=== PATIENT | female | born 1985 | race Caucasian/White ===

== ENCOUNTER 2016-09-02 16:01 | Emergency (ER) | payer MEDICAID, OTHER ==
[~2016-09-02] VITALS: Wt 75.0 kg
[~2016-09-02 16:01] MED LIST: DENIES
[2016-09-02 17:28] LABS: ADD SCAN DIFF NO
[2016-09-02 17:36] LABS: BASOPHILS % 0.6 % (0.0-2.0); EOSINOPHILS % 0.6 % (0.0-7.0); HEMATOCRIT 39.3 % (37.0-47.0); HEMOGLOBIN 13.6 g/dl (12.0-16.0); LYMPHOCYTES # 2.2 10^3/ul (0.8-2.9); LYMPHOCYTES % 33.3 % (15.0-51.0); MEAN CORPUSCULAR HEMOGLOBIN 29.2 pg (29.0-33.0); MEAN CORPUSCULAR HGB CONC 34.6 g/dl (32.0-37.0); MEAN CORPUSCULAR VOLUME 84.3 fl (82.0-101.0); MEAN PLATELET VOLUME 9.7 fl (7.4-10.4); MONOCYTE # 0.4 10^3/ul (0.3-0.9); MONOCYTES % 6.8 % (0.0-11.0); NEUTROPHIL # 3.8 10^3/ul (1.6-7.5); NEUTROPHILS % 58.4 % (39.0-77.0); PLATELET COUNT 214 10^3/UL (140-415); RED BLOOD COUNT 4.66 10^6/ul (4.20-5.40); WHITE BLOOD COUNT 6.5 10^3/ul (4.8-10.8)
[2016-09-02 17:54] LABS: ADD UMIC YES; URINE BILIRUBIN (Dip) NEGATIVE (NEGATIVE); URINE BLOOD (Dip) 2+ (NEGATIVE); URINE COLOR LT. YELLOW (YELLOW); URINE GLUCOSE (Dip) NEGATIVE (NEGATIVE); URINE KETONES (Dip) NEGATIVE (NEGATIVE); URINE LEUKOCYTE ESTERASE (Dip) 2+ (NEGATIVE); URINE NITRITE (Dip) NEGATIVE (NEGATIVE); URINE TOTAL PROTEIN (Dip) NEGATIVE (NEGATIVE); URINE UROBILINOGEN (Dip) 0.2 E.U./dL (0.1-1.0)
[2016-09-02 19:12] LABS: BACTERIA,URINE MODERATE; SQUAMOUS EPITHELIAL CELL,UR MANY
--- NOTE | 2016-09-02 19:38 | RADRPT ---
AMENDMENT: 09/02/2016 7:42:14 PM Malcolm Angel M.D Recommend follow up imaging to confirm that the lesion seen in the right adnexal area is result of a corpus luteal cyst. PROCEDURE: US OB. CLINICAL INDICATION: 23-year-old female with vaginal bleeding. TECHNIQUE: Transabdominal and transvaginal views of the pelvis are available for review. COMPARISON: Pelvic sonogram 12/11/2008. FINDINGS: The uterus measured 10.1 cm sagittal by 5.1 cm AP by 7.1 cm transverse. Years contains a gestationa l sac measuring 1.2 x 0.6 x 0.9 cm. Main sac diameter is 0.92 cm which calculates out to 5 weeks 3 days. A yolk sac is identified. [place]-rump length:No pole is identified. heart rate:No cardiac activity is noted. There is normal blood flow to the right ovary. There is a corpus luteal cyst in the right ovary tyrel suring 2.6 x 1.6 by 2.2 cm. There is a tubular shaped fluid collection in the right adnexal area of the may be the result of a hydrosalpinx. The left ovary measures 2.7 by 1.9 x 3.7 cm. There is normal blood flow to both ovaries. A trace of fluid is noted in the cul-de-sac. IMPRESSION: 1. A gestational sac is identified. AUA calculates out to 5 weeks 3 days. 2. 2.6 x 1.6 x 2.2 cm right corpus luteal cyst of . 3. Right hydrosalpinx. 4. Trace fluid in the cul-de-sac. RPTAT:AAJJ Physician Aimee Date Time Electronically viewed and signed by Corey Angel Physician on 09/02/2016 19:42 RAULITO/
[2016-09-02] MEDS ORDERED: ACETAMINOPHEN 500 MG TAB PO STA (19:41)
[2016-09-02] MEDS ORDERED: TYL500 PO (19:43)
[2016-09-02] MEDS ORDERED: CEPH250S33 PO (19:43)
--- NOTE | 2016-09-02 19:47 | ERD ---
ER Documentation Chief Complaint Date/Time DATE: 09/02/16 TIME: 19:44 Chief Complaint VAG BLEED 8 WEEKS PREG HPI This 31-year-old female presents with some vaginal bleeding starting today. She is approximately 8 weeks by dates. She did see her OB today and noticed some blood when she got home. She is some mild lower suprapubic cramping as well. She denies any fevers or vomiting or urinary complaints. She is a G4 para 3. ROS All systems reviewed and are negative except as per history of present illness. Medications Home Meds Active Scripts Acetaminophen* (Tylenol*) 500 Mg Tab, 500 MG PO Q4H Y for MILD PAIN LEVEL 1-3, # 15 TAB Prov:GENE CAMARGO MD 09/02/16 Cephalexin* (Cephalexin* Susp) 250 Mg/5 Ml Susp.recon, 500 MG PO Q6 for 5 Days, #1 BOTTLE Prov:GENE CAMARGO MD 09/02/16 Reported Medications [Denies] No Conflict Check 08/03/10 Allergies Allergies: Coded Allergies: No Known Allergy (Verified , 10/21/11) PMhx/Soc History of Surgery: Yes () Anesthesia Reaction: No Hx Neurological Disorder: No Hx Respiratory Disorders: No Hx Cardiac Disorders: No Hx Psychiatric Problems: No Hx Miscellaneous Medical Probl: No Hx Alcohol Use: No Hx Substance Use: No Hx Tobacco Use: No Smoking Status: Never smoker Physical Exam Vitals Vital Signs Date Time Temp Pulse Resp B/P Pulse Ox O2 Delivery O2 Flow Rate FiO2 09/02/16 16:03 98.7 87 18 118/75 99 Physical Exam Const: [] Alert, [id number] per Head: Atraumatic Eyes: Normal Conjunctiva ENT: Normal External Ears, Nose and Mouth. Neck: Full range of motion..~ No meningismus. Resp: Clear to auscultation bilaterally Cardio: Regular rate and rhythm, no murmurs Abd: Soft, minimal suprapubic tenderness., non distended. Normal bowel sounds Skin: No petechiae or rashes Back: No midline or flank tenderness Ext: No cyanosis, or edema Neur: Awake and alert Psych: Normal Mood and Affect Result Diagram: 09/02/16 1720 Results 24 hrs Laboratory Tests Test 09/02/16 17:20 Basophils # 0.010^3/ul Basophils % 0.6% Beta HCG, Quantitative 29154.0mIU/ml Eosinophils # 0.010^3/ul Eosinophils % 0.6% Hematocrit 39.3% Hemoglobin 13.6g/dl Lymphocytes # 2.210^3/ul Lymphocytes % 33.3% Mean Corpuscular Hemoglobin 29.2pg Mean Corpuscular Hemoglobin Concent 34.6g/dl Mean Corpuscular Volume 84.3fl Mean Platelet Volume 9.7fl Monocytes # 0.410^3/ul Monocytes % 6.8% Neutrophils # 3.810^3/ul Neutrophils % 58.4% Nucleated Red Blood Cells # 0.010^3/ul Nucleated Red Blood Cells % 0.0/100WBC Platelet Count 75723^3/UL Red Blood Count 4.6610^6/ul Red Cell Distribution Width 13.0% Urine Bacteria MODERATE Urine Bilirubin NEGATIVE Urine Clarity SLIGHTLY CLOUDY Urine Color LT. YELLOW Urine Glucose NEGATIVE% Urine Hemoglobin 2+ Urine Ketones NEGATIVE Urine Leukocyte Esterase 2+ Urine Microscopic RBC 5-10/HPF Urine Microscopic WBC 25-50/HPF Urine Nitrite NEGATIVE Urine Specific [place] 1.015 Urine Squamous Epithelial Cells MANY Urine Total Protein NEGATIVE Urine Urobilinogen 0.2 E.U./dL Urine pH 6.0 White Blood Count 6.510^3/ul Current Medications Medications (Trade) Dose Ordered Sig/Roberta Route PRN Reason Start Time Stop Time Status Last Admin Dose Admin Acetaminophen (Tylenol Tab) 500 mg ONCE STAT PO 09/02/16 19:41 09/02/16 19:42 UNV Cephalexin (Keflex) 500 mg ONCE ONCE PO 09/02/16 20:00 09/02/16 20:01 UNV Procedures/MDM Urine shows leukocytes and hemoglobin with moderate bacteria. CBC shows no acute abnormalities. Patient is Rh+. Quantitative hCG is 11,600. Pelvic ultrasound shows a 6 week gestational sac without pole, yolk sac or heart tones. There is a right-sided hydrosalpinx. There is no appreciation of ectopic . There is a corpus luteal cyst. Patient presents with vaginal bleeding 1 days duration. She did have some clots but no visible tissue. She may have incomplete or early normal or possible ectopic . Patient is in no distress. I am recommending a 2 day recheck for hormone level and ultrasound. Signs or symptoms not consistent with appendicitis, acute abdomen. She does have signs of urinary tract infection will be treated for this. Departure Diagnosis: Primary Impression: Vaginal bleeding in patient at less than 20 weeks ges... Condition: Stable Patient Instructions: Bleeding During Early Additional Instructions: Ultrasound shows a small sac. Symptoms may may be early normal , early miscarriage or possible tubal . Recommend repeat hormone levels and ultrasound in 48 hours. Recheck sooner for fevers, vomiting, new or worsening symptoms or worsening pain. Urine shows infection will be treated for this but not likely related. GENE CAMARGO MD Sep 02, 2016 19:47
--- NOTE | 2016-09-02 19:52 | ERD ---
ER Documentation Chief Complaint Date/Time DATE: 09/02/16 TIME: 19:41 Chief Complaint VAG BLEED 8 WEEKS PREG ROS All systems reviewed and are negative except as per history of present illness. Medications Home Meds Reported Medications [Denies] No Conflict Check 08/03/10 Allergies Allergies: Coded Allergies: No Known Allergy (Verified , 10/21/11) PMhx/Soc History of Surgery: Yes () Anesthesia Reaction: No Hx Neurological Disorder: No Hx Respiratory Disorders: No Hx Cardiac Disorders: No Hx Psychiatric Problems: No Hx Miscellaneous Medical Probl: No Hx Alcohol Use: No Hx Substance Use: No Hx Tobacco Use: No Smoking Status: Never smoker Physical Exam Vitals Vital Signs Date Time Temp Pulse Resp B/P Pulse Ox O2 Delivery O2 Flow Rate FiO2 09/02/16 16:03 98.7 87 18 118/75 99 Physical Exam Const: [] Head: Atraumatic Eyes: Normal Conjunctiva ENT: Normal External Ears, Nose and Mouth. Neck: Full range of motion..~ No meningismus. Resp: Clear to auscultation bilaterally Cardio: Regular rate and rhythm, no murmurs Abd: Soft, non tender, non distended. Normal bowel sounds Skin: No petechiae or rashes Back: No midline or flank tenderness Ext: No cyanosis, or edema Neur: Awake and alert Psych: Normal Mood and Affect Result Diagram: 09/02/16 1720 Results 24 hrs Laboratory Tests Test 09/02/16 17:20 Basophils # 0.010^3/ul Basophils % 0.6% Beta HCG, Quantitative 31780.0mIU/ml Eosinophils # 0.010^3/ul Eosinophils % 0.6% Hematocrit 39.3% Hemoglobin 13.6g/dl Lymphocytes # 2.210^3/ul Lymphocytes % 33.3% Mean Corpuscular Hemoglobin 29.2pg Mean Corpuscular Hemoglobin Concent 34.6g/dl Mean Corpuscular Volume 84.3fl Mean Platelet Volume 9.7fl Monocytes # 0.410^3/ul Monocytes % 6.8% Neutrophils # 3.810^3/ul Neutrophils % 58.4% Nucleated Red Blood Cells # 0.010^3/ul Nucleated Red Blood Cells % 0.0/100WBC Platelet Count 80269^3/UL Red Blood Count 4.6610^6/ul Red Cell Distribution Width 13.0% Urine Bacteria MODERATE Urine Bilirubin NEGATIVE Urine Clarity SLIGHTLY CLOUDY Urine Color LT. YELLOW Urine Glucose NEGATIVE% Urine Hemoglobin 2+ Urine Ketones NEGATIVE Urine Leukocyte Esterase 2+ Urine Microscopic RBC 5-10/HPF Urine Microscopic WBC 25-50/HPF Urine Nitrite NEGATIVE Urine Specific [place] 1.015 Urine Squamous Epithelial Cells MANY Urine Total Protein NEGATIVE Urine Urobilinogen 0.2 E.U./dL Urine pH 6.0 White Blood Count 6.510^3/ul Departure Diagnosis: Primary Impression: Vaginal bleeding in patient at less than 20 weeks ges... Condition: Stable Patient Instructions: Bleeding During Early Additional Instructions: Ultrasound shows a small sac. Symptoms may may be early normal , early miscarriage or possible tubal . Recommend repeat hormone levels and ultrasound in 48 hours. Recheck sooner for fevers, vomiting, new or worsening symptoms or worsening pain. GENE CAMARGO MD Sep 02, 2016 19:51
[2016-09-02] MEDS ORDERED: CEPHALEXIN 500 MG CAP PO ONE (20:00)
[2016-09-02 20:31] VITALS: BP 115/73; PULSE 68; RESP 18; TEMP 98.7
== END 2016-09-02 20:32 | disposition home or self-care (01) ==
LOC: FTE 16:01
DX: O20.9 Hemorrhage in early pregnancy, unspecified (principal); Z3A.01 Less than 8 weeks gestation of pregnancy
CPT/HCPCS: 76801; 76817; 81001; 81003; 84702; 85025; 86900; 86901; Z7610

== ENCOUNTER 2016-09-04 13:03 | Emergency (ER) | payer MEDICAID ==
[~2016-09-04] VITALS: Ht 162.6 cm; Wt 75.0 kg
[~2016-09-04 13:03] MED LIST changes: +CEPH250S33 PO; +TYL500 PO
[2016-09-04 13:08] VITALS: Ht 162.6 cm; Wt 75.0 kg
[2016-09-04] MEDS ORDERED: METOCLOPRAMIDE 10 MG TAB PO ONE (14:00)
[2016-09-04 14:32] LABS: BASOPHILS % 0.6 % (0.0-2.0); EOSINOPHILS # 0.1 10^3/ul (0.0-0.5); EOSINOPHILS % 0.9 % (0.0-7.0); HEMATOCRIT 41.9 % (37.0-47.0); HEMOGLOBIN 14.4 g/dl (12.0-16.0); LYMPHOCYTES # 1.9 10^3/ul (0.8-2.9); LYMPHOCYTES % 30.8 % (15.0-51.0); MEAN CORPUSCULAR HEMOGLOBIN 29.3 pg (29.0-33.0); MEAN CORPUSCULAR HGB CONC 34.4 g/dl (32.0-37.0); MEAN PLATELET VOLUME 7.9 fl (7.4-10.4); MONOCYTE # 0.5 10^3/ul (0.3-0.9); MONOCYTES % 7.7 % (0.0-11.0); NEUTROPHIL # 3.8 10^3/ul (1.6-7.5); PLATELET COUNT 219 10^3/UL (140-440); RED BLOOD COUNT 4.93 10^6/ul (4.20-5.40); RED CELL DISTRIBUTION WIDTH 13.6 % (11.5-14.5); UNCORRECTED WBC 6.3 10^3/ul (4.8-10.8); WHITE BLOOD COUNT 6.3 10^3/ul (4.8-10.8)
[2016-09-04 14:38] LABS: CONDITION 1
[2016-09-04 14:43] LABS: ADD UMIC YES; URINE BILIRUBIN (Dip) NEGATIVE (NEGATIVE); URINE BLOOD (Dip) NEGATIVE (NEGATIVE); URINE COLOR LT. YELLOW (YELLOW); URINE GLUCOSE (Dip) NEGATIVE (NEGATIVE); URINE KETONES (Dip) NEGATIVE (NEGATIVE); URINE LEUKOCYTE ESTERASE (Dip) 2+ (NEGATIVE); URINE NITRITE (Dip) NEGATIVE (NEGATIVE); URINE TOTAL PROTEIN (Dip) NEGATIVE (NEGATIVE); URINE UROBILINOGEN (Dip) 0.2 E.U./dL (0.1-1.0)
[2016-09-04 14:59] LABS: BACTERIA,URINE RARE; SQUAMOUS EPITHELIAL CELL,UR FEW; URINE RBCS 0-2 /HPF (0)
--- NOTE | 2016-09-04 15:23 | RADRPT ---
PROCEDURE: US OB. CLINICAL INDICATION: Vaginal bleeding TECHNIQUE: Transabdominal and transvaginal views of the pelvis are available for review. COMPARISON: 09/02/2016 FINDINGS: There is a single intrauterine gestation with the crown-rump length measuring 0.4 cm, corresponding to a gestational age of 6 weeks and 0 days. The heart rate is noted at 114 bpm. Normal Doppler flow is identified in both ovaries. The right ovary measures 3.0 x 2.0 x 2.8 cm. There is a tubular structure in the right adnexa, suspi cious for hydrosalpinx. There is a corpus luteum cyst in the right ovary. The left ovary measures 2.9 x 1.4 x 1.9 cm. There is a small amount of free fluid in the cul-de-sac. RPTAT: AA IMPRESSION: Single live intrauterine with an estimated gestational age of 6 weeks and 0 days, based on ultrasound measurements. bradycardia may be due to the early gestation. Close follow-up is needed. MIRA based on ultrasound measurements is 04/30/17. Right hydrosalpinx. Right ovarian corpus luteum cyst. .Devonte Mayfield MD, MD Date Time Electronically viewed and signed by .Devonte Mayfield MD, on 09/04/2016 15:23 .S/
--- NOTE | 2016-09-04 15:53 | ERD ---
ER Documentation Chief Complaint Date/Time DATE: 09/04/16 TIME: 15:44 Chief Complaint SEEN LAST MONDAY FOR VB 8 WKS PREG. INSTRUCTED TO RETURN TODAY. HPI Patient is a 31-year-old female, presents to the emergency department for repeat ultrasound hCG levels. Patient was seen here on 09/02/16, and at that time ultrasound showed "6 week gestational sac without pole, yolk sac or heart tones. There is a right-sided hydrosalpinx. No appreciation of ectopic . There is a corpus luteal cyst." Patient states that her vaginal bleeding has resolved. Patient does report some bilateral pelvic cramping. She states that the pain is more in the right side. Patient also reports intermittent nausea and vomiting the mornings. Patient denies any fever , chills, shortness of breath, chest pain, loss consciousness. She was also diagnosed with a UTI at previous visit. Patient states that she has not picked up her prescription for Keflex yet. ROS All systems reviewed and are negative except as per history of present illness. Medications Home Meds Active Scripts Acetaminophen* (Tylenol*) 500 Mg Tab, 500 MG PO Q4H Y for MILD PAIN LEVEL 1-3, # 15 TAB Prov:GENE CAMARGO MD 09/02/16 Cephalexin* (Cephalexin* Susp) 250 Mg/5 Ml Susp.recon, 500 MG PO Q6 for 5 Days, #1 BOTTLE Prov:GENE CAMARGO MD 09/02/16 Reported Medications [Denies] No Conflict Check 08/03/10 Allergies Allergies: Coded Allergies: No Known Allergy (Verified , 10/21/11) PMhx/Soc Medical and Surgical Hx: pt denies Medical Hx History of Surgery: Yes () Anesthesia Reaction: No Hx Neurological Disorder: No Hx Respiratory Disorders: No Hx Cardiac Disorders: No Hx Psychiatric Problems: No Hx Miscellaneous Medical Probl: No Hx Alcohol Use: No Hx Substance Use: No Hx Tobacco Use: No Smoking Status: Never smoker FmHx Family History: No diabetes Physical Exam Vitals Vital Signs Date Time Temp Pulse Resp B/P Pulse Ox O2 Delivery O2 Flow Rate FiO2 09/04/16 13:08 97.2 88 19 119/74 99 Physical Exam GENERAL: Well-developed, well-nourished female. Appears in no acute distress. HEAD: Normocephalic, atraumatic. EYES: Pupils are equally reactive bilaterally. EOMs grossly intact. No conjunctival erythema. ENT: Moist mucous membranes. No uvula deviation. No kissing tonsils. NECK: Supple. No lymphadenopathy or thyromegaly. No meningismus. LUNG: Clear to auscultation bilaterally. No rhonchi, wheezing, rales or coarse breath sounds. HEART: Regular rate and rhythm. No murmurs, rubs or gallops. ABDOMEN: No scars, ecchymosis or rashes noted. Soft and nondistended. Tender to palpation in the suprapubic region and right pelvic region. Positive bowel sounds in all four quadrants. No rebound tenderness, no guarding. (-) McBurneys point tenderness. No CVA tenderness. BACK: No midline tenderness. EXTREMITIES: Equal pulses bilaterally. No peripheral clubbing, cyanosis or edema. No unilateral leg swelling. NEUROLOGIC: Alert and oriented. Moving all four extremities without any difficulty. Normal speech. Steady gait. SKIN: Normal color. Warm and dry. No rashes or lesions. Result Diagram: 09/04/16 1420 Results 24 hrs Laboratory Tests Test 09/04/16 14:17 09/04/16 14:20 Urine Bacteria RARE Urine Bilirubin NEGATIVE Urine Clarity CLEAR Urine Color LT. YELLOW Urine Glucose NEGATIVE% Urine Hemoglobin NEGATIVE Urine Ketones NEGATIVE Urine Leukocyte Esterase 2+ Urine Microscopic RBC 0-2/HPF Urine Microscopic WBC 5-10/HPF Urine Nitrite NEGATIVE Urine Specific [place] 1.010 Urine Squamous Epithelial Cells FEW Urine Total Protein NEGATIVE Urine Urobilinogen 0.2 E.U./dL Urine pH 5.0 Basophils # 0.010^3/ul Basophils % 0.6% Beta HCG, Quantitative 56246.0mIU/ml Eosinophils # 0.110^3/ul Eosinophils % 0.9% Hematocrit 41.9% Hemoglobin 14.4g/dl Lymphocytes # 1.910^3/ul Lymphocytes % 30.8% Mean Corpuscular Hemoglobin 29.3pg Mean Corpuscular Hemoglobin Concent 34.4g/dl Mean Corpuscular Volume 85.0fl Mean Platelet Volume 7.9fl Monocytes # 0.510^3/ul Monocytes % 7.7% Neutrophils # 3.810^3/ul Neutrophils % 60.0% Nucleated Red Blood Cells # 0.010^3/ul Nucleated Red Blood Cells % 0.0/100WBC Platelet Count 97859^3/UL Red Blood Count 4.9310^6/ul Red Cell Distribution Width 13.6% White Blood Count 6.310^3/ul Current Medications Medications (Trade) Dose Ordered Sig/Roberta Route PRN Reason Start Time Stop Time Status Last Admin Dose Admin Metoclopramide HCl (Reglan) 5 mg ONCE ONCE PO 09/04/16 14:00 09/04/16 14:01 DC 09/04/16 14:23 Procedures/MDM ED COURSE: The patient was stable throughout ED course. I kept the patient and/or family informed of laboratory and diagnostic imaging results throughout the ED course. DIAGNOSTIC IMAGING: Read by radiologist. DIAGNOSTIC IMAGING REPORT Patient: BILLY TODD : 1985 Age: 31 Sex: F MR #: [id number] DOS: 09/04/16 1357 Ordering MD: VIC CHEEMA PA-C Location: [facility] Room/Bed: PROCEDURE: US OB. CLINICAL INDICATION: Vaginal bleeding TECHNIQUE: Transabdominal and transvaginal views of the pelvis are available for review. COMPARISON: 09/02/2016 FINDINGS: There is a single intrauterine gestation with the crown-rump length measuring 0.4 cm, corresponding to a gestational age of 6 weeks and 0 days. The heart rate is noted at 114 bpm. Normal Doppler flow is identified in both ovaries. The right ovary measures 3.0 x 2.0 x 2.8 cm. There is a tubular structure in the right adnexa, suspicious for hydrosalpinx. There is a corpus luteum cyst in the right ovary. The left ovary measures 2.9 x 1.4 x 1.9 cm. There is a small amount of free fluid in the cul-de-sac. RPTAT: AA IMPRESSION: Single live intrauterine with an estimated gestational age of 6 weeks and 0 days, based on ultrasound measurements. bradycardia may be due to the early gestation. Close follow-up is needed. MIRA based on ultrasound measurements is 04/30/17. Right hydrosalpinx. Right ovarian corpus luteum cyst. .Devonte Mayfield MD, MD Date Time Electronically viewed and signed by .Devonte Mayfield MD, MD on 09/04/2016 15: 23 .S/ CC: VIC CHEEMA PA-C PROCEDURES: None. MEDICATIONS GIVEN: Reglan Patient tolerated medication well with no adverse reactions. Patient reported improvement in nausea. Additional episodes of vomiting noted during ED course. MEDICAL DECISION MAKING: This is a 31 year-old female who presents for repeat beta hCG level and pelvic ultrasound. Vital signs were reviewed. Patient was afebrile. Patient was hemodynamically stable. On 09/02/16, [place] [address]. Today, the patients b-HCG was 61967. Patient's b-HCG noted to be up trending. At previous visit, patient was noted to be A+. RhoGAM was not given. CBC showed no evidence of systemic infection or severe anemia. Urine showed 2 positive leukocyte esterase. Pelvic US showed Single live intrauterine with an estimated gestational age of 6 weeks and 0 days, based on ultrasound measurements. bradycardia may be due to the early gestation. Close follow-up is needed. IMRA based on ultrasound measurements is 04/30/17. Right hydrosalpinx. Right ovarian corpus luteum. Given these findings, the patients presentation is most consistent with IUP and UTI. Unable to rule out threatened at this time. I have a much lower clinical concern for demise, ectopic , ruptured ectopic , molar , subchorionic hematoma, incomplete , anembyronic . From monitoring and repeat bHCG and ultrasound were advised to the patient. PRESCRIPTIONS: Patient was advised to go to the pharmacy and fill her Keflex prescription from previous visit DISCHARGE: At this time, patient is stable for discharge and outpatient management. I had a conversation at length with the patient about the concerns of vaginal bleeding during the 1st trimester of . Patient and/or family understands that her vaginal bleeding can be a normal finding or a sign of miscarriage. I have instructed the patient to follow-up with her OBGYN or return to the emergency department in 1-2 days for further monitoring including a repeat b-HCG level and pelvic ultrasound. I have instructed the patient to promptly return to the ER at any time for any new or worsening symptoms including increased pain, nausea, vomiting, continued bleeding, weakness, syncope or fever. The patient and/or family expressed understanding of and agreement with this plan. All questions were answered. Home care instructions were provided. Departure Diagnosis: Primary Impression: Vaginal bleeding in patient at less than 20 weeks ges... Additional Impression: UTI (urinary tract infection) Urinary tract infection type: site unspecified Hematuria presence: without hematuria Qualified Code: N39.0 - Urinary tract infection without hematuria, site unspecified Condition: Stable Patient Instructions: Bleeding During Early Referrals: COMMUNITY CLINICS YOU HAVE RECEIVED A MEDICAL SCREENING EXAM AND THE RESULTS INDICATE THAT YOU DO NOT HAVE A CONDITION THAT REQUIRES URGENT TREATMENT IN THE EMERGENCY DEPARTMENT. FURTHER EVALUATION AND TREATMENT OF YOUR CONDITION CAN WAIT UNTIL YOU ARE SEEN IN YOUR DOCTORS OFFICE WITHIN THE NEXT 1-2 DAYS. IT IS YOUR RESPONSIBILITY TO MAKE AN APPOINTMENT FOR FOLOW-UP CARE. IF YOU HAVE A PRIMARY DOCTOR --you should call your primary doctor and schedule an appointment IF YOU DO NOT HAVE A PRIMARY DOCTOR YOU CAN CALL OUR PHYSICIAN REFERRAL HOTLINE AT IF YOU CAN NOT AFFORD TO SEE A PHYSICIAN YOU CAN CHOSE FROM THE FOLLOWING [facility] [address] [facility]. [facility] [address] [facility] [address] [facility] [facility] [address] [facility] [facility] [address] [facility]. [facility]. [address] [facility]. [facility] YOU HAVE RECEIVED A MEDICAL SCREENING EXAM AND THE RESULTS INDICATE THAT YOU DO NOT HAVE A CONDITION THAT REQUIRES URGENT TREATMENT IN THE EMERGENCY DEPARTMENT. FURTHER EVALUATION AND TREATMENT OF YOUR CONDITION CAN WAIT UNTIL YOU ARE SEEN IN YOUR DOCTORS OFFICE WITHIN THE NEXT 1-2 DAYS. IT IS YOUR RESPONSIBILITY TO MAKE AN APPOINTMENT FOR FOLOW-UP CARE. IF YOU HAVE A PRIMARY DOCTOR --you should call your primary doctor and schedule and appointment IF YOU DO NOT HAVE A PRIMARY DOCTOR YOU CAN CALL OUR PHYSICIAN REFERRAL HOTLINE AT . IF YOU CAN NOT AFFORD TO SEE A PHYSICIAN YOU CAN CHOSE FROM THE FOLLOWING [facility] INSTITUTIONS: [facility] [address] [place] [address] [facility] [address] [place] [address] [facility] [address] [place] [address] [employer] CLERK [place] [address] [facility] [address] [place] [address] OFFICE FAX , [facility] [address] [place], [place] [id number] [facility] [address] [place] [address] [address], [facility] [address] [facility] [facility] [address] [address] [facility] [address] [place] [address] [facility] [address] [place] [address] [address] [facility] [address] [address] [place] [facility] [address] [address], [place] [address] [facility]. [address], [facility] [address] [address] [address] [place], [place] [id number] Additional Instructions: Call your primary care doctor/OBGYN TOMORROW for an appointment during the next 1-2 days.See the doctor sooner or return here if your condition worsens before your appointment time. Follow up in 2 days for repeat B-HCG and ultrasound. Get Keflex prescription filled today. Start immediately. VIC CHEEMA PA-C Sep 04, 2016 15:53
== END 2016-09-04 16:11 | disposition home or self-care (01) ==
LOC: FTE 13:03
DX: O20.9 Hemorrhage in early pregnancy, unspecified (principal); O23.41 Unspecified infection of urinary tract in pregnancy, first trimester; R10.2 Pelvic and perineal pain; Z3A.01 Less than 8 weeks gestation of pregnancy
CPT/HCPCS: 76801; 76817; 81001; 84702; 85025; Z7610; 36415; 81003

== ENCOUNTER 2017-04-05 20:22 | Outpatient (CLI) | payer MEDICAID ==
[~2017-04-05] VITALS: Ht 162.6 cm; Wt 85.3 kg
[2017-04-05] MEDS ORDERED: PRENAT PO (20:46)
[2017-04-05 20:48] VITALS: BP 105/62; PULSE 99; RESP 18
[2017-04-05 21:50] LABS: ADD UMIC YES; UR ASCORBIC ACID NEGATIVE (NEGATIVE); UR BACTERIA FEW /HPF (NONE SEEN); UR BILIRUBIN (Dip) NEGATIVE (NEGATIVE); UR BLOOD (Dip) NEGATIVE (NEGATIVE); UR CLARITY CLEAR (CLEAR); UR COLOR YELLOW (YELLOW); UR GLUCOSE (Dip) NEGATIVE (NEGATIVE); UR KETONES (Dip) NEGATIVE (NEGATIVE); UR LEUKOCYTE ESTERASE (Dip) 3+ Leu/ul (NEGATIVE); UR NITRITE (Dip) NEGATIVE (NEGATIVE); UR RBC 1 /HPF (0-5); UR SPECIFIC GRAVITY (Dip) 1.013 (1.003-1.030); UR SQUAMOUS EPITHELIAL CELL FEW /HPF (FEW); UR TOTAL PROTEIN (Dip) NEGATIVE (NEGATIVE); UR UROBILINOGEN (Dip) 1+ mg/dL (NEGATIVE)
--- NOTE | 2017-04-05 23:06 | PN ---
Triage Information Date/Time April 05, 2017 Reason for visit: Weeks of Gestation 36 weeks and 5 days /Para 4 para 3 Diabetes: none Hypertention: none Additional information 31-year-old with IUP at 36 weeks and 5 days with care at [facility] presented with complaint of abdominal pain from epigastric area up to symphysis pubis and suprapubic pain as well. She denies any nausea or vomiting , fever chills, denies any leaking of fluid, vaginal bleeding or decreased movement or uterine contractions. Objective Vital Signs Date Time Temp Pulse Resp B/P Pulse Ox O2 Delivery O2 Flow Rate FiO2 04/05/17 20:48 98.2 99 18 105/62 Room Air Heart Rate: 130's Contractions: None Exam General appearance: Alert and oriented 4. Patient appears to be in mild distress Abdomen soft, gravid, fundal height consistent with gestational age NST: Category 1 BPP: 02/28 UA: Negative EFW: 64% Abdominal ultrasound normal with right mild hydronephrosis otherwise no significant Results/Medications Results 24 hrs Laboratory Tests Test 04/05/17 20:00 Urine Color YELLOW Urine Clarity CLEAR Urine pH 6.0 Urine Specific Kelly 1.013 Urine Ketones NEGATIVE Urine Nitrite NEGATIVE Urine Bilirubin NEGATIVE Urine Urobilinogen 1+ H Urine Leukocyte Esterase 3+ H Urine Microscopic RBC 1 Urine Microscopic WBC 2 Urine Squamous Epithelial Cells FEW Urine Bacteria FEW A Urine Hemoglobin NEGATIVE Urine Glucose NEGATIVE Urine Total Protein NEGATIVE Imaging Results PROCEDURE: ULTRASOUND ABDOMEN/RETROPERITONEAL CLINICAL INDICATION: 31-year-old female with abdominal pain. TECHNIQUE: Multiple sonographic of the abdomen and retroperitoneum were obtained. The images were reviewed on a PACS workstation. COMPARISON: None. FINDINGS: The proximal inferior vena cava and abdominal aorta are unremarkable. The pancreas is partially visualized and is otherwise without abnormal echogenicity. The liver displays normal echogenicity. The liver measures 14.3 cm in length. No evidence of intrahepatic biliary ductal dilatation is seen. The portal and hepatic veins are unremarkable. The gallbladder demonstrates no wall thickening, sludge, nor stones. No pericholecystic fluid is seen. The common bile duct measures 3.2 mm and is not dilated. The kidneys display normal echogenicity. The right kidney measures 12.0 cm and the left measures 12.4 cm in maximal length. There is mild right-sided hydronephrosis. The spleen measures 9.2 cm and is without abnormal echogenicity. No free fluid is seen. IMPRESSION: Mild right-sided hydronephrosis. PROCEDURE: ULTRASOUND BIOPHYSICAL PROFILE CLINICAL INDICATION: 31-year-old female in labor for viability. TECHNIQUE: Multiple sonographic images were obtained in order to perform a biophysical profile The images were reviewed on a PACS workstation. COMPARISON: None. FINDINGS: There is a single viable intrauterine gestation. There is a vertex presentation. Cardiac activity is present at 160 a beats per minute. The placenta is posterior. The results of the biophysical profile are as follows: breathing movement = 2/2 Gross body movement = 2/2 tone = 2/2 Qualitative amniotic fluid volume = 2/2 Amniotic fluid index equals 12.1 cm. This yields a biophysical profile score of 8/8. IMPRESSION: Biophysical profile score is 8/8. PROCEDURE: ULTRASOUND OBSTETRICAL CLINICAL INDICATION: 31-year-old female in labor for size and date determination. TECHNIQUE: Multiple sonographic images of the pelvis were obtained. The images were reviewed on a PACS workstation. COMPARISON: No prior studies are available for comparison. FINDINGS: The cervix is not well visualized. There is a single viable intrauterine gestation. Cardiac activity is present with 137 beats per minute. There is a vertex presentation. Measurements were made in order to determine age. The results are as follows: BPD = 8.9 cm, HC = 33.0 cm, AC = 33.1 cm, FL = 7.3 cm. This yields and estimated gestational age of approximately 37 weeks 0 days. The estimated date of delivery is April 26, 2017. The EFW = 3098 +/- 465 g (6 lb 13 oz). The GP is 64%. The placenta is posterior. There is no evidence for an abruption or placenta previa. IMPRESSION: 1. Single viable intrauterine gestation of approximately 37 weeks 0 days with vertex presentation. The estimated date of delivery is April 26, 2017. 2. The estimated weight is 3098 +/- 465 g (6 lb 13 oz). The GP is 64%. Disposition: Discharge Assessment/Plan IUP at 36 weeks and 5 days Abdominal pain likely musculoskeletal.. No evidence of abdominal pathology, labor appendicitis, peritonitis, or acute abdomen Evidence of premature rupture membrane or labor Patient will be discharged home. He quit hydration done. Follow-up with her primary care OB within 24-48 hours after discharge from the hospital recommended UA shows moderate leukocyte esterase and tenderness in suprapubic area noted Urine culture was sent. Patient was a started on Keflex 4 times daily. She will call her OB office for follow-up of the results in 3 days if negative can stop Keflex. Patient verbalized understanding plan of care. COREEN SANCHEZ MD Apr 05, 2017 23:06
[2017-04-05 23:15] LABS: BASOPHILS % 0.3 % (0.0-2.0); EOSINOPHILS # 0.1 10^3/ul (0.0-0.5); EOSINOPHILS % 1.2 % (0.0-7.0); HEMATOCRIT 36.5 % (37.0-47.0); HEMOGLOBIN 12.4 g/dl (12.0-16.0); LYMPHOCYTES # 1.3 10^3/ul (0.8-2.9); LYMPHOCYTES % 19.7 % (15.0-51.0); MEAN CORPUSCULAR HEMOGLOBIN 30.1 pg (29.0-33.0); MEAN CORPUSCULAR VOLUME 88.6 fl (82.0-101.0); MEAN PLATELET VOLUME 9.4 fl (7.4-10.4); MONOCYTE # 0.6 10^3/ul (0.3-0.9); MONOCYTES % 9.5 % (0.0-11.0); NEUTROPHIL # 4.5 10^3/ul (1.6-7.5); NEUTROPHILS % 68.1 % (39.0-77.0); PLATELET COUNT 193 10^3/UL (140-415); RED BLOOD COUNT 4.12 10^6/ul (4.20-5.40); RED CELL DISTRIBUTION WIDTH 13.8 % (11.5-14.5); WHITE BLOOD COUNT 6.5 10^3/ul (4.8-10.8)
[2017-04-05 23:39] LABS: ALBUMIN 2.9 g/dl (3.3-4.9); ALBUMIN/GLOBULIN RATIO 0.96; BILIRUBIN,INDIRECT 0.3 mg/dl (0-1.1); BILIRUBIN,TOTAL 0.3 mg/dl (0.2-1.3); CREATININE 0.48 mg/dl (0.44-1.00); POTASSIUM 3.6 mmol/L (3.5-5.1); TOTAL PROTEIN 5.9 g/dl (6.1-8.1)
--- NOTE | 2017-04-05 23:55 | RADRPT ---
PROCEDURE: ULTRASOUND ABDOMEN/RETROPERITONEAL CLINICAL INDICATION: 31-year-old female with abdominal pain. TECHNIQUE: Multiple sonographic of the abdomen and retroperitoneum were obtained. The images were reviewed on a PACS workstation. COMPARISON: None. FINDINGS: The proximal inferior vena cava and abdominal aorta are unremarkable. The pancreas is partially visualized and is otherwise without abnormal echogenicity. The liver displays normal echogenicity. The liver measures 14.3 cm in length. No evidence of intrah epatic biliary ductal dilatation is seen. The portal and hepatic veins are unremarkable. The gallbladder demonstrates no wall thickening, sludge, nor stones. No pericholecystic fluid is see n. The common bile duct measures 3.2 mm and is not dilated. The kidneys display normal echogenicity. The right kidney measures 12.0 cm and the left measures 12. 4 cm in maximal length. There is mild right-sided hydronephrosis. The spleen measures 9.2 cm and is without abnormal echogenicity. No free fluid is seen. IMPRESSION: Mild right-sided hydronephrosis. .Antonio Bajwa MD, Date Time Electronically viewed and signed by .Antonio Bajwa MD, on 04/05/2017 23:55 .M/
--- NOTE | 2017-04-05 23:58 | RADRPT ---
PROCEDURE: ULTRASOUND OBSTETRICAL CLINICAL INDICATION: 31-year-old female in labor for size and date determination. TECHNIQUE: Multiple sonographic images of the pelvis were obtained. The images were reviewed on a PACS workstation. COMPARISON: No prior studies are available for comparison. FINDINGS: The cervix is not well visualized. There is a single viable intrauterine gestation. Cardiac activit y is present with 137 beats per minute. There is a vertex presentation. Measurements were made in or ramu to determine age. The results are as follows: BPD = 8.9 cm, HC = 33.0 cm, AC = 33.1 cm, FL = 7.3 cm. This yields and estimated gestational age of approximately 37 weeks 0 days. The estimated date of delivery is April 26, 2017. The EFW = 3098 +/- 465 g (6 lb 13 oz). The GP is 64%. The placenta is posterior. There is no evidence for an abruption or placenta previa. IMPRESSION: 1. Single viable intrauterine gestation of approximately 37 weeks 0 days with vertex presentation. The estimated date of delivery is April 26, 2017. 2. The estimated weight is 3098 +/- 465 g (6 lb 13 oz). The GP is 64%. .Antonio Bajwa MD, Date Time Electronically viewed and signed by .Antonio Bajwa MD, on 04/05/2017 23:58 .Lilibeth
--- NOTE | 2017-04-05 23:59 | RADRPT ---
PROCEDURE: ULTRASOUND BIOPHYSICAL PROFILE CLINICAL INDICATION: 31-year-old female in labor for viability. TECHNIQUE: Multiple sonographic images were obtained in order to perform a biophysical profile The images were reviewed on a PACS workstation. COMPARISON: None. FINDINGS: There is a single viable intrauterine gestation. There is a vertex presentation. Cardiac activity i s present at 160 a beats per minute. The placenta is posterior. The results of the biophysical prof ile are as follows: breathing movement = 2/2 Gross body movement = 2/2 tone = 2/2 Qualitative amniotic fluid volume = 2/2 Amniotic fluid index equals 12.1 cm. This yields a biophysical profile score of 8/8. IMPRESSION: Biophysical profile score is 8/8. .Antonio Bajwa MD, Date Time Electronically viewed and signed by .Antonio Bajwa MD, on 04/05/2017 23:59 .M/
[2017-04-06] MEDS ORDERED: ACETAMINOPHEN 500 MG TAB PO ONE (00:41)
--- NOTE | 2017-04-06 02:35 | TRIAGE ---
OB Triage Datetime Report Generated by CPN: 04/06/2017 02:34 Datetime: 04/05/2017 20:49 Time of Arrival: 04/05/2017 20:15 EGA: 36.5 Arrived By: Ambulatory Arrived From: Home Chief Complaint: hx c/s x1 c/o constant midline abd pain and back pain beg 0 and leaking c lear fluid since 1900. States hx hi BP x3 wks Movement: Present Contractions: Denies/Absent Rupture of Membranes: Unsure Vaginal Bleeding: None Vaginal Discharge: Present Recent Sexual Intercouse: Denies Abdominal Trauma: Not Applicable Patient Complaints: Back Pain; Other Time Provider Notified: 04/05/2017 22:00 Provider Notified: Dr Obando Initial Plan: EFM Datetime: 04/05/2017 20:31 Labor Evaluation Monitor Mode: External Resting Tone [place]: Relaxed Datetime: 04/05/2017 20:29 Stage of : OB Triage Maternal Assessment Level of Consciousness: Fully Conscious Headache: Denies Blurred Vision: No Respiratory Effort: Unlabored Nausea/Vomiting: Denies RUQ Epigastric Pain: Denies Facial Edema: None Labor Evaluation Monitor Mode: External Resting Tone [place]: Relaxed Heart Rate FHR Baseline Rate: 140 Monitor Mode: External US Pain Assessment Pain Scale: 7 Pain Presence: Constant Pain Type: Stabbing Pain Location: Abdomen; Back
== END 2017-04-06 01:15 | disposition home or self-care (01) ==
LOC: OBT 20:22 → L-D 20:23 → OBT 04-06 01:15
PROVIDERS: ATTEND Obstetrics & Gynecology
DX: O26.893 Other specified pregnancy related conditions, third trimester (principal); R10.13 Epigastric pain; N13.30 Unspecified hydronephrosis; O60.03 Preterm labor without delivery, third trimester; Z3A.36 36 weeks gestation of pregnancy
CPT/HCPCS: 36415; 76700; 76815; 76818; 80053; 81001; 84112; 85025; Z7500; Z7610; G0463

== ENCOUNTER 2017-04-22 06:35 | Inpatient (IN) | END 2017-04-25 18:16 | disposition home or self-care (01) | DRG 766 | DX: O34.211 Maternal care for low transverse scar from previous cesarean delivery (principal); O32.1XX0 Maternal care for breech presentation, not applicable or unspecified; Z37.0 Single live birth; Z3A.39 39 weeks gestation of pregnancy ==